=== PATIENT | male | born 1995 | race Caucasian/White ===

== ENCOUNTER 2016-12-20 12:49 | Emergency (ER) | payer OTHER ==
[2016-12-20 12:55] VITALS: BP 136/73
[2016-12-20] MEDS ORDERED: HYDROcod/ACETAM 5/325 MG TABLET PO STA (13:03)
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
[2016-12-20] MEDS ORDERED: HYDROcod/ACETAM 5/325 MG TABLET ONE (13:10)
--- NOTE | 2016-12-20 13:59 | XRAY Preliminary Report ---
Exam: XR Hip w/Pelvis 2-3V RT IMPRESSION: Normal pelvis and hip radiography. [facility] SITE ID: [id number]
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
== END 2016-12-20 14:20 | disposition home or self-care (01) ==
LOC: ED 12:49
DX: S70.01XA Contusion of right hip, initial encounter (principal); V29.9XXA Motorcycle rider (driver) (passenger) injured in unspecified traffic accident, initial encounter; Y92.410 Unspecified street and highway as the place of occurrence of the external cause; R03.0 Elevated blood-pressure reading, without diagnosis of hypertension
CPT/HCPCS: 73502; 99283; A9270